=== PATIENT | female | born 1975 | race Caucasian/White ===

== ENCOUNTER 2016-07-29 03:17 | Observation (INO) | payer BC ==
[2016-07-29] MEDS ORDERED: SODIUM CHLORIDE 0.9% FLUSH 10 ML FLUSH IV FLUSH PRN (06:15)
[2016-07-29 06:50] VITALS: BP 133/65; PULSE 66; RESP 18; TEMP 97.6; O2SAT 99
[2016-07-29] MEDS ORDERED: ACETAMINOPHEN 500 MG CPLT PO PRN (08:00)
[2016-07-29 08:28] VITALS: BP 135/94; PULSE 73; RESP 20; TEMP 98.2; O2SAT 96
[2016-07-29 08:40] LABS: CREATINE KINASE 43 U/L (26-192)
[2016-07-29] MEDS ORDERED: SODIUM CHLORIDE 0.9% FLUSH 10 ML FLUSH IV FLUSH SCH (09:00)
[2016-07-29 10:06] VITALS: PULSE 62
--- NOTE | 2016-07-29 11:08 | HHI.HP ---
HPI Primary Care Physician No Primary Care Physician Chief Complaint Chest pain, syncopal episode, in fall History of Present Illness 41-year-old female with no pertinent medical history presents to emergency room for further evaluation of chest discomfort, syncopal episode, and fall. Reports onset was 1:30 this morning when she was awakened with chest tightness. Characterized as left anterior chest tightness radiating to her left arm. Described left arm radiating pain described as numb and tingling. She initially felt she may have slept on arm "wrong." She sat on side of bed and became dizzy, diaphoretic, and short of breath. She stood up and states she immediately fell hitting her nose. Believes brief LOC. Fall awakened her . States immediately after fall she was disoriented briefly. Episode lasted approximately 15 minutes. Denied any nausea or vomiting. No known precipitating or relieving factors. Has been encouraged her to come to the ER for further evaluation, however patient states she was feeling better before arriving to ER. She has not had similar pain in the past, nor past syncopal episodes. Review of Systems General: No fatigue,weakness, fever, chills, recent illness, recent travel, or change in appetite HEENT: No REA, no vision changes, no nasal congestion or drainage, no dysphasia CV: As stated above. No current chest pain or pressure. No palpitations, intermittent leg pain, or dizziness RESP: No SOB, cough, wheeze, or recent URI. GI: No nausea, vomiting, bowel changes, diarrhea, constipation, pain, or distention. No unintentional weight gain or weight loss : No dysuria, urgency, frequency EXT: No lower leg edema, no paraesthesias MS: No discomfort or change in ROM. NEURO: No change in memory, dizziness, difficulty with balance, LOC, motor/ sensory deficits PSYCH: No anxiety, depression, suicidal ideation SKIN: No rashes, no concerning lesions Past Family Social History Allergies: Coded Allergies: No Known Allergies (Unverified , 07/29/16) Past Medical History None Past Surgical History [place] teeth extraction Reported Medications Active Daily multivitamin Active Ordered Medications Current Medications Medications (Trade) Dose Ordered Sig/Sourav Route Start Time Stop Time Status Last Admin (Tylenol) 500 mg Q4H PRN PO 07/29/16 08:00 Family History Noncontributory for early onset cardiovascular disease Social History No known diabetes, hypertension, or hyperlipidemia. Endorses lipid panel completed 2 weeks ago completely normal. Lifelong nonsmoker. Alcohol rarely. Denies any illegal drug use. Physically active runs 3-5 miles, 46 days/week. 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 . Past cardiac testing None Physical Exam Vital Signs Vital Signs Date Time Temp Pulse Resp B/P Pulse Ox O2 Delivery O2 Flow Rate FiO2 07/29/16 10:06 62 07/29/16 08:28 98.2 73 20 135/94 96 07/29/16 06:50 97.6 66 18 133/65 99 Physical Exam GENERAL: Alert WN, WD, NAD, pleasant, female HEAD: NC, AT EYES: Sclera clear, conjunctiva without injection, pupils equal and round ENT: Mucous membranes pink and moist, no nasal discharge or bleeding NECK: Supple, no masses, trachea midline CV: RRR, without murmur, rub, gallop, no JVD, S1-S2 no S3-S4. Heart tones auscultated in supine, sitting, standing, and squatting position. No carotid or femoral bruits. RESP: Clear lungs throughout bilateral, no crackles, wheeze, rhonchi, symmetrical chest rise, nonlabored, able to speak in full sentences ABD: Soft, NT, ND, no masses, positive bowel tones BACK: No CVAT, no scoliosis EXT: Pulses +24, no dependent edema MS: Normal tone 4 extremities, nontender, no obvious deformities, full range of motion NEURO: CN II through CN XII grossly intact, motor strength 5/5, gait WNL PSYCH: A+O 3, pleasant affect, appropriate speech, appropriate mood and affect , insight and judgment SKIN: Normal turgor, normal texture, no lesions, no rashes, brisk cap refill, even hair distribution Laboratory Laboratory Tests Test 07/29/16 07:50 Total Creatine Kinase 43 Troponin I LESS THAN 0.02 CBC unremarkable. CMP unremarkable. 3 sets of troponins less than 0.02 Laboratory work completed in [facility] ER prior to transferring to [facility] ER. Imaging Chest x-ray conclusion of normal examination her radiologist. Head CT conclusion normal examination per radiologist. Course EKG 3 EKG showed normal sinus bradycardic rhythm, normal axis, no ST or T-segment changes Assessment and Plan Assessment and Plan #1 Chest painadmitted to chest pain center. Ruled out with 3 sets of cardiac enzymes, EKGs, and monitored overnight. Seen and evaluated by Dr. Kenny Orellana. Patient complete an exercise stress test. Exercise stress test unremarkable for ischemia with good exercise tolerance. Chest discomfort most likely musculoskeletal in nature leading to a vasovagal response. Patient will be discharged later this afternoon without restrictions. #2 Syncopal episodesyncopal episode appears to be vasovagal response. Discussed in length nature and clinical symptoms of vasovagal response. Educated patient if she develops similar symptoms in the future to lay down and elevate feet until feelings subside. Head CT unremarkable. Encouraged her to establish with a primary care provider for preventative and health maintenance. Eleni Lockett July 29, 2016 11:08
[2016-07-29] MEDS ORDERED: ONDANSETRON HCL 4 MG/2 ML VIAL IV PRN (11:15)
[2016-07-29] MEDS ORDERED: NITROGLYCERIN 0.4 MG SL 25 TABS/BTL SL PRN (11:15)
[2016-07-29 12:24] VITALS: BP 118/65; PULSE 63; RESP 18; TEMP 96.5
--- NOTE | 2016-07-29 13:32 | HHI.DCPOC ---
Discharge Care Plan Diagnosis: (1) Atypical chest pain (2) Vaso vagal episode Goals to Promote Your Health * To prevent worsening of your condition and complications * To maintain your health at the optimal level Directions to Meet Your Goals Take your medications as prescribed Follow your dietary instruction Follow activity as directed Keep your appointments as scheduled Take your immunizations and boosters as scheduled If your symptoms worsen call your PCP, if no PCP go to Urgent Care Center or Emergency Room Smoking is Dangerous to Your Health. Avoid second hand smoke Call the 24-hour hour crisis hotline for domestic abuse at Eleni Lockett July 29, 2016 13:32
--- NOTE | 2016-07-29 13:38 | TR ---
Date Performed: 07/29/2016 Time Performed: 13:08:23 DOCTOR: Kenny Orellana DRUG LIST: CLINICAL HISTORY: CHEST PAIN REASON FOR TEST: Chest pain REASON FOR ENDING: OBSERVATION: CONCLUSION: Carlos Manuel protocol completed. Stopped sec to exceeding target heart rate and leg fatigue . Target HR Achieved=89.0% Target MA=275 Maximum FV=401/78 Total Exercise Time=10:00. No st t segment chanes to sugg ischemia. No ectopy. No reprod chest discomfort. Good exercise tolerance. Normal bp r esponse. Recovery quick and unmarkable. COMMENTS: Conclusion: Normal treadmill exercise. No evidence of ischemia.
--- NOTE | 2016-07-29 16:54 | EKG ---
Date Performed: 07/29/2016 Time Performed: 07:54:29 PTAGE: 41 years EKG: SINUS BRADYCARDIA BORDERLINE ECG PREVIOUS TRACING 07/29/2016 @04.41.39 Compared to prior tracing no significant change DOCTOR: Maranda Mckeon Interpretating Date/Time 07/29/2016 16:51:17
[2016-07-30] MEDS ORDERED: ASPIRIN 325 MG TAB PO SCH (09:00)
== END 2016-07-29 14:34 | disposition home or self-care (01) ==
LOC: NEDDLT 03:17 → NEPHCDU 06:48 → UNDODISOB 14:34
DX: R07.89 Other chest pain (principal); R55 Syncope and collapse
CPT/HCPCS: 70450; 71010; 80048; 82550; 83735; 84484; 84702; 85007; 85027; 85379; 85610; 85730; 93005; 93017; G0378; 99281